=== PATIENT | male | born 1970 | race Caucasian/White ===

== ENCOUNTER 2020-09-16 08:18 | Emergency (ER) | payer MEDICAID ==
[~2020-09-16] VITALS: Ht 172.7 cm; Wt 86.2 kg
[2020-09-16] MEDS ORDERED: EMTR1TAB13 PO (08:29)
[2020-09-16] MEDS ORDERED: DARU1TAB PO (08:29)
--- NOTE | 2020-09-16 08:30 | NUR ---
at bedside for assessment
[2020-09-16] MEDS ORDERED: AZIT1PAC9 PO (09:19)
[2020-09-16] MEDS ORDERED: BENZ-13 PO (09:19)
--- NOTE | 2020-09-16 09:25 | NUR ---
Patient discharged to home in stable condition. No signs of acute distress noted, tok all belongings. Written and verbal after care instructions given. Patient verbalizes understanding of instructions. Stressed follow up or return to ER for worsening s/s.
[2020-09-16 09:49] VITALS: BP 137/71
== END 2020-09-16 09:30 | disposition home or self-care (01) ==
LOC: ER 08:18
DX: J06.9 Acute upper respiratory infection, unspecified (principal); J98.11 Atelectasis
CPT/HCPCS: 71045; A4663

== ENCOUNTER 2020-10-23 00:11 | Emergency (ER) | payer MEDICAID ==
[~2020-10-23] VITALS: Ht 170.2 cm; Wt 86.2 kg
[~2020-10-23 00:11] MED LIST: AZIT1PAC9 PO; BENZ-13 PO; DARU1TAB PO; EMTR1TAB13 PO
[2020-10-23] MEDS ORDERED: CLINDAMYCIN HCL 300 MG CAPSULE PO STA (01:09)
[2020-10-23] MEDS ORDERED: HYDR-4209 PO (01:14)
[2020-10-23] MEDS ORDERED: IBUP-1957 PO (01:14)
[2020-10-23] MEDS ORDERED: CLIN300C12 PO (01:14)
[2020-10-23] MEDS ORDERED: IBUPROFEN 800 MG TABLET PO ONE (01:15)
[2020-10-23] MEDS ORDERED: CLINDAMYCIN HCL 150 MG CAPSULE ONE (01:27)
[2020-10-23] MEDS ORDERED: IBUPROFEN 800 MG TABLET ONE (01:28)
[2020-10-23 01:36] VITALS: BP 128/77
--- NOTE | 2020-10-23 01:36 | NUR ---
Patient discharged to home in stable condition. Written and verbal after care instructions given. Patient verbalizes understanding of instructions. Stressed follow up or return to ER for worsening s/s.
== END 2020-10-23 01:37 | disposition home or self-care (01) ==
LOC: ER 00:14
DX: K05.00 Acute gingivitis, plaque induced (principal); K02.9 Dental caries, unspecified; J02.9 Acute pharyngitis, unspecified; K04.01 Reversible pulpitis
CPT/HCPCS: A4663